=== PATIENT | male | born 1935 | race Caucasian/White ===

== ENCOUNTER 2017-08-05 20:29 | Emergency (ER) | payer OTHER ==
[2017-08-05 20:32] VITALS: BP 117/57; PULSE 82; TEMP 97.6; BMI 23.8
--- NOTE | 2017-08-05 21:02 | PDOC ---
History of Present Illness - General History Source: Patient Exam Limitations: No Limitations - History of Present Illness Initial Comments: 08/05/17 21:57 The patient is a 81 year old male, with a significant past medical history of hypertension, hyperlipidemia, GERD, skin cancer, hiatal hernia, and enlarged prostate, who presents to the emergency department complaining of a nose bleed approximately 20:30. The patient reports he was blowing his nose, when suddenly he began to bleed in the left nostril. Patient reports he bled for approximately 10 minutes and then the bleeding resolved on its own. Patient reports he does not have a history of frequent nose bleeds. However, the last time he had a nose bleed 5-6 years ago, he had to have it cauterized. He denies any nasal congestion, fever, chills, headache, or dizziness. He denies any chest pain, shortness of breath, diaphoresis, or palpitations. He reports taking 81 mg aspirin daily. He denies any recent travel or sick contacts. PAST MEDICAL HISTORY: Hypertension, hyperlipidemia, GERD, skin cancer, hiatal hernia, and enlarged prostate PAST SURGICAL HISTORY: No significant history FAMILY HISTORY: No pertinent history SOCIAL HISTORY: Pt lives with family and is employed. MEDICATIONS: Reviewed ALLERGIES: As per nursing notes General: No fevers or chills, no weakness, no weight loss HEENT: Yes nose bleed(left nostril). No change in vision. No sore throat. No ear pain CardioVascular: No chest pain or shortness of breath Respiratory: No cough, or wheezing. Gastrointestinal: No nausea, vomiting, diarrhea or constipation, No rectal bleeding Genitourinary: No dysuria, hematuria, or frequency Musculoskeletal: No joint or muscle pain or swelling Neurologic: No headache, vertigo, dizziness or loss of consciousness Psychiatric: No depression Skin: No rashes or easy bruising Endocrine: No increased thirst or abnormal weight change Allergic: No skin or latex allergy All other systems reviewed and normal GENERAL: The patient is awake, alert, and fully oriented, in no acute distress. HEAD: Normal with no signs of trauma. ENT: No active bleeding or clots. No blood in the posterior oropharynx. Small area in the mid portion of the septum that appears to be the source of the bleed. EYES: Pupils equal, round and reactive to light, extraocular movements intact, sclera anicteric, conjunctiva clear. EXTREMITIES: Normal range of motion, no edema. NEUROLOGICAL: Normal speech, normal gait. PSYCH: Normal mood, normal affect. SKIN: Warm, Dry, normal turgor, no rashes or lesions noted. <Misbah Covarrubias - Last Filed: 08/05/17 21:58> - General History Source: Patient Exam Limitations: No Limitations - History of Present Illness Initial Comments: 08/05/17 22:02 A portion of this note was documented by scribe services under my direction. I have reviewed the details of the note, within reason, and agree with the documentation. The case summary and management plan written by me. Procedure Area of epistaxis of the left septum was cauterized with silver nitrate patient tolerated well Assessment and plan: This is an 81-year-old male who comes in complaining of a nosebleed. Patient does take an aspirin a day. The nose has stopped bleeding by the time the patient arrived in the emergency room. The area of bleeding was cauterized with silver nitrate and patient was observed for approximately 15-20 minutes after cauterization. There was no further bleeding and patient was discharged home. <Abigail Castaneda I - Last Filed: 08/05/17 22:04> - General Chief Complaint: Nasal Bleeding Stated Complaint: NOSEBLEED Time Seen by Provider: 08/05/17 20:46 Past History <Misbah Covarrubias - Last Filed: 08/05/17 21:58> - Past Medical History Cancer: Yes (SKIN) GI Disorders: Yes (GERD, HIATAL HERNIA) Disorders: Yes (ENLARGED PROSTATE) HTN: Yes - Suicide/Smoking/Psychosocial Hx Smoking History: Never smoked Have you smoked in the past 12 months: No <Abigail Castaneda I - Last Filed: 08/05/17 22:04> - Past Medical History Allergies/Adverse Reactions: Allergies Allergy/AdvReac Type Severity Reaction Status Date / Time levofloxacin [From Levaquin] Allergy Verified 02/06/16 23:16 Penicillins Allergy Verified 02/06/16 23:15 Home Medications: Ambulatory Orders Aspirin [ASA -] 81 mg PO DAILY 02/06/16 Atorvastatin Ca [Lipitor] 10 mg PO HS 02/06/16 Lansoprazole [Prevacid] 30 mg PO DAILY 02/06/16 Losartan Potassium [Cozaar -] 50 mg PO DAILY 02/06/16 Tamsulosin HCl [Flomax] 0.8 mg PO DAILY 02/06/16 *Physical Exam - Vital Signs Last Vital Signs Temp Pulse Resp BP Pulse Ox 97.6 F 82 16 117/57 96 08/05/17 20:31 08/05/17 20:31 08/05/17 20:31 08/05/17 20:31 08/05/17 20:31 <Misbah Covarrubias - Last Filed: 08/05/17 21:58> - Vital Signs Last Vital Signs Temp Pulse Resp BP Pulse Ox 97.6 F 82 16 117/57 96 08/05/17 20:31 08/05/17 20:31 08/05/17 20:31 08/05/17 20:31 08/05/17 20:31 <Abigail Castaneda I - Last Filed: 08/05/17 22:04> *DC/Admit/Observation/Transfer - Attestations Scribe Attestion: 08/05/17 21:58 Documentation prepared by Misbah Covarrubias, acting as medical records coordinator for Abigail Castaneda MD. <Misbah Covarrubias - Last Filed: 08/05/17 21:58> - Discharge Dispostion Admit: No <Abigail Castaneda I - Last Filed: 08/05/17 22:04> Diagnosis at time of Disposition: Anterior Epistaxis - Discharge Dispostion Disposition: HOME Condition at time of disposition: Stable - Referrals Referrals: Mahendra Ash [Primary Care Provider] - - Patient Instructions Printed Discharge Instructions: DI for Nosebleed Additional Instructions: Return to the emergency department immediately with ANY new, persistent or worsening symptoms. Continue any medications as previously prescribed by your physician. You should follow up with your primary doctor as soon as possible regarding today's emergency department visit. . Please make sure your doctor reviews the results of your emergency evaluation. Thank you for coming to the Emergency Department today for your care. It was a pleasure to see you today. Please note that your evaluation is INCOMPLETE until you follow-up with your doctor.
== END 2017-08-05 22:24 | disposition home or self-care (01) ==
LOC: FER 20:29
DX: R04.0 Epistaxis (principal); E78.5 Hyperlipidemia, unspecified; K21.9 Gastro-esophageal reflux disease without esophagitis; Z85.828 Personal history of other malignant neoplasm of skin; I10 Essential (primary) hypertension
CPT/HCPCS: 99281-25